=== PATIENT | male | born 1950 | race Caucasian/White ===

== ENCOUNTER 2019-03-05 06:08 | Day surgery (SDC) | payer BC, OTHER ==
[2019-03-02 15:14] VITALS: BMI 26.9
[2019-03-05] MEDS ORDERED: ePHEDrine SULFATE 50 MG/1 ML AMPULE ONE (07:07)
[2019-03-05] MEDS ORDERED: SUCCINYLCHOLINE CHLORIDE 200 MG/10 ML VIAL ONE (07:07)
[2019-03-05] MEDS ORDERED: PROPOFOL 20 ML ONE ×5 (07:07)
[2019-03-05] MEDS ORDERED: MIDAZOLAM HCL 2 MG/2 ML SINGLE DOSE VIAL ONE (07:08)
[2019-03-05] MEDS ORDERED: LIDOCAINE 1% P/F 10 MG/ML VIAL ONE (07:10)
[2019-03-05] MEDS ORDERED: BUPIVACAINE HCL 0.25% 125 MG/50 ML VIAL ONE (07:11)
[2019-03-05] MEDS ORDERED: BUPIVACAINE HCL/PF 0.25% (2.5MG/ML) 10 ML VIAL IJ ONE (08:14)
[2019-03-05] MEDS ORDERED: LIDOCAINE HCL 1%, 10 MG/ML (50 mL VIAL) IJ ONE (08:27)
[2019-03-05 08:47] VITALS: TEMP 98.1
[2019-03-05 09:26] VITALS: BP 113/74; PULSE 73
--- NOTE | 2019-03-05 09:47 | OP ---
DATE OF OPERATION: 03/05/2019 LOCATION: [facility]. SURGEON: Celso Lopez MD FLAG CAR DRIVER: CESARIO Morgan PREOPERATIVE DIAGNOSIS: Right 4th finger trigger finger/tenosynovitis. POSTOPERATIVE DIAGNOSIS: Right 4th finger trigger finger/tenosynovitis. PROCEDURE: Release of right 4th finger trigger finger (CPT code 77874). FINDINGS: A thickened A1 leonor with impingement on the flexor tendons and minor fraying of the tendons. PROCEDURE: Informed consent was obtained. Taken to the operating room where the right upper extremity was prepped and draped in sterile fashion. Incision was made along the dorsal palmar crease exposing the A1 leonor. This was then incised and extended proximally and distally using blunt tenotomy scissors. Curved hemostat was placed around the tendons. Minor fraying was debrided and there was no longer impingement after release of the A1 leonor. The wound was irrigated with copious amounts of irrigation, closed with 4-0 nylon in interrupted sutures. Sterile dressing was placed. The patient transferred to the recovery room without complication. The PA listed above was present and assisted at surgery. Their presence was absolutely medically necessary for the completion of the procedure. They helped hold the arthroscopy, pass instruments (and implants when indicated) and the procedure could not have been completed without their assistance. CELSO LOPEZ M.D. [id number]
[2019-03-05] MEDS ORDERED: oxyCODONE HCL 5 MG TABLET PO PRN ×2 (11:12)
[2019-03-05] MEDS ORDERED: ONDANSETRON 4 MG/2 ML VIAL IVPUSH PRN (11:12)
[2019-03-05] MEDS ORDERED: LACTATED RINGERS SOLUTION 1,000 ML IV SCH (11:15)
== END 2019-03-05 09:20 | disposition home or self-care (01) ==
LOC: FASU 06:08
PROVIDERS: ATTEND Orthopaedic Surgery
PROC: 0LN70ZZ Release Right Hand Tendon, Open Approach (ICD-10-PCS; principal; 2019-03-05 07:30)
DX: M65.341 Trigger finger, right ring finger (principal); M65.9 Synovitis and tenosynovitis, unspecified